=== PATIENT | female | born 1960 | race Caucasian/White ===

== ENCOUNTER 2023-05-04 22:13 | Emergency (ER) | payer OTHER ==
[~2023-05-04] VITALS: Ht 162.6 cm; Wt 61.2 kg
[2023-05-04 22:19] VITALS: BP_SYST 190; PULSE 78; RESP 18; TEMP 98.1; O2SAT 98
[2023-05-04] MEDS ORDERED: ACETAMINOPHEN 500 MG TABLET PO ONE (22:45)
[2023-05-04 22:48] LABS: BASOPHILS # (AUTO) 0.1 K/uL (0.0-0.2); BASOPHILS % (AUTO) 0.8 % (0.0-2.0); EOSINOPHILS # (AUTO) 0.2 K/uL (0.0-0.4); EOSINOPHILS % (AUTO) 1.7 % (0.0-4.0); HEMATOCRIT 42.2 % (36-48); HEMOGLOBIN 14.5 g/dL (12.0-16.0); LYMPHOCYTES # (AUTO) 2.6 K/uL (1.0-5.5); MEAN CORPUSCULAR HEMOGLOBIN 33 pg (27-31); MEAN CORPUSCULAR HGB CONC 34 % (32-36); MEAN CORPUSCULAR VOLUME 97 fL (79.0-98.0); MONOCYTES # (AUTO) 0.9 K/uL (0.0-1.0); MONOCYTES % (AUTO) 8.9 % (1.7-9.3); NEUTROPHILS # (AUTO) 6.3 K/uL (1.8-7.7); NEUTROPHILS % (AUTO) 62.6 % (40.0-70.0); PLATELET COUNT (AUTO) 304 K/uL (130-430); RED BLOOD CELL COUNT(AUTO) 4.34 MIL/uL (4.2-6.2); RED CELL DISTRIBUTION WIDTH 12.6 % (9.0-15.0); WHITE BLOOD COUNT (AUTO) 10.1 K/uL (4.8-10.8)
[2023-05-04] MEDS ORDERED: amLODIPine BESYLATE 5 MG TABLET PO ONE (23:00)
[2023-05-04 23:02] LABS: ANION GAP 9 (5-15); CARBON DIOXIDE 27 mmol/L (23-29); CHLORIDE 103 mmol/L (98-107); CREATININE 1.16 mg/dL (0.55-1.30); GFR AFRICAN AMERICAN 61 mL/min (>90); GLUCOSE 121 mg/dL (74-106); POTASSIUM 4.5 mmol/L (3.5-5.1); SODIUM SERUM 139 mmol/L (136-145); UREA NITROGEN, BLOOD 17 mg/dL (8-21)
[2023-05-04 23:03] LABS: GFR NON AFRICAN-AMERICAN 50 mL/min (>90)
[2023-05-04 23:09] LABS: ALANINE AMINOTRANSFERASE 96 U/L (12-78); ASPARTATE AMINOTRANSFERASE 33 U/L (10-37); TOTAL BILIRUBIN 0.7 mg/dL (0.0-1.0); TOTAL PROTEIN, SERUM 7.3 g/dL (6.4-8.3)
[2023-05-04] MEDS ORDERED: ASPIRIN 81 MG TABLET(ECOTRIN) PO ONE (23:15)
[2023-05-04] MEDS ORDERED: ENALAPRILAT DIHYDRATE 1.25 MG/ML VIAL IVP ONE (23:45)
[2023-05-05 00:13] LABS: BILIRUBIN,URINE NEGATIVE (NEGATIVE); CLARITY/URINE Clear (CLEAR); COLOR,URINE YELLOW (YELLOW); GLUCOSE,URINE NEGATIVE (NEGATIVE); LEUKOCYTE ESTERASE ,URINE 1+ (NEGATIVE); NITRITE, URINE NEGATIVE (NEGATIVE); PH,URINE 6.5 (5.0-8.0); PROTEIN URINE NEGATIVE (NEGATIVE); UROBILINOGEN,URINE 0.2 (0.2-1.0)
[2023-05-05 00:15] LABS: BLOOD, URINE TRACE (NEGATIVE); KETONES,URINE NEGATIVE (NEGATIVE)
[2023-05-05 00:24] LABS: BACTERIA,URINE RARE /HPF (None Seen)
[2023-05-05] MEDS ORDERED: ONDANSETRON HCL 4 MG/2 ML VIAL IVP ONE (02:15)
[2023-05-05] MEDS ORDERED: LORazepam 2 MG/ML VIAL IVP ONE (04:00)
[2023-05-05 09:19] VITALS: O2SAT 96
[2023-05-05 09:22] VITALS: BP_SYST 118; PULSE 67; RESP 18; TEMP 98.9
== END 2023-05-05 09:15 | disposition short-term general hospital (02) ==
LOC: SED 22:13
DX: R51.9 Headache, unspecified (principal); I10 Essential (primary) hypertension; R77.8 Other specified abnormalities of plasma proteins; Z88.2 Allergy status to sulfonamides; Z79.899 Other long term (current) drug therapy; Z20.822 Contact with and (suspected) exposure to COVID-19
CPT/HCPCS: 99291; 96374; 87426; 80053; 81000; 83880; 85025; 87086; 84484; 36415; 71045; 96375; J2060; J2405

== ENCOUNTER 2024-02-26 23:31 | Emergency (ER) | payer SELFPAY ==
[~2024-02-26] VITALS: Ht 160 cm; Wt 59.0 kg
[2024-02-27 00:09] VITALS: BP_SYST 98; PULSE 55; RESP 20; TEMP 97; O2SAT 98
[2024-02-27 01:35] LABS: BASOPHILS # (AUTO) 0.1 K/uL (0.0-0.2); BASOPHILS % (AUTO) 0.7 % (0.0-2.0); EOSINOPHILS % (AUTO) 0.1 % (0.0-4.0); HEMATOCRIT 38.5 % (36-48); HEMOGLOBIN 13.8 g/dL (12.0-16.0); LYMPHOCYTES # (AUTO) 0.9 K/uL (1.0-5.5); LYMPHOCYTES % (AUTO) 8.3 % (20.5-51.5); MEAN CORPUSCULAR HEMOGLOBIN 35 pg (27-31); MEAN CORPUSCULAR HGB CONC 36 % (32-36); MEAN CORPUSCULAR VOLUME 96 fL (79.0-98.0); MONOCYTES # (AUTO) 0.4 K/uL (0.0-1.0); MONOCYTES % (AUTO) 3.4 % (1.7-9.3); NEUTROPHILS # (AUTO) 9.9 K/uL (1.8-7.7); NEUTROPHILS % (AUTO) 87.5 % (40.0-70.0); PLATELET COUNT (AUTO) 254 K/uL (130-430); RED BLOOD CELL COUNT(AUTO) 4.01 MIL/uL (4.2-6.2); RED CELL DISTRIBUTION WIDTH 12.6 % (9.0-15.0); WHITE BLOOD COUNT (AUTO) 11.4 K/uL (4.8-10.8)
[2024-02-27 01:36] LABS: ALANINE AMINOTRANSFERASE 74 U/L (12-78); ALBUMIN 3.5 g/dL (3.4-4.8); ANION GAP 11 (5-15); ASPARTATE AMINOTRANSFERASE 31 U/L (10-37); CALCIUM 8.8 mg/dL (8.4-11.0); CARBON DIOXIDE 24 mmol/L (23-29); CHLORIDE 103 mmol/L (98-107); CREATININE 1.01 mg/dL (0.55-1.30); GFR AFRICAN AMERICAN 71 mL/min (>90); GLUCOSE 205 mg/dL (74-106); POTASSIUM 4.3 mmol/L (3.5-5.1); SODIUM SERUM 138 mmol/L (136-145); TOTAL BILIRUBIN 0.4 mg/dL (0.0-1.0); TOTAL PROTEIN, SERUM 7.2 g/dL (6.4-8.3); UREA NITROGEN, BLOOD 18 mg/dL (8-21)
[2024-02-27 01:38] LABS: GFR NON AFRICAN-AMERICAN 59 mL/min (>90)
[2024-02-27 01:39] LABS: PROTHROMBIN TIME 9.9 SECS (9.5-12.5)
[2024-02-27 01:51] LABS: BILIRUBIN,DIRECT 0.1 mg/dL (0.0-0.3); LIPASE 16 U/L (16-77)
[2024-02-27] MEDS: ONDANSETRON HCL 4 MG/2 ML VIAL IVP ONE ×2 (02:05→04:11)
[2024-02-27] MEDS: MORPHINE 4 MG INJ. 4 MG/ML VIAL IVP ONE (02:09)
[2024-02-27] MEDS: ASPIRIN 81 MG TAB.CHEW PO ONE (02:17)
[2024-02-27] MEDS ORDERED: ASPIRIN 81 MG TAB.CHEW ONE (02:18)
[2024-02-27 02:24] VITALS: TEMP 97.6
[2024-02-27 02:54] VITALS: PULSE 16; RESP 16; O2SAT 95
[2024-02-27] MEDS ORDERED: ONDANSETRON HCL 4 MG/2 ML VIAL ONE (04:10)
[2024-02-27 04:16] VITALS: BP_SYST 119
== END 2024-02-27 04:16 | disposition short-term general hospital (02) ==
LOC: SED 23:31
DX: I21.29 ST elevation (STEMI) myocardial infarction involving other sites (principal); R07.89 Other chest pain; R79.89 Other specified abnormal findings of blood chemistry; R10.13 Epigastric pain; R11.2 Nausea with vomiting, unspecified; I10 Essential (primary) hypertension; Z90.49 Acquired absence of other specified parts of digestive tract; Z88.2 Allergy status to sulfonamides
CPT/HCPCS: 99291; 80076; 80048; 83880; 83690; 85025; 85379; 85610; 85730; 84484; 36415; 71045; 99292; 74176; 96374; 96375; 96376; J2405; J2270